=== PATIENT | female | born 1970 | race Hispanic/Latino ===

== ENCOUNTER 2017-02-15 20:38 | Emergency (ER) | payer BC, SELFPAY ==
[2017-02-15] MEDS ORDERED: Ketorolac Tromethamine 60 MG/2 ML VIAL ONE (22:39)
--- NOTE | 2017-02-15 23:08 | RAD ---
LEFT HIP TWO VIEWS: History: 46-year-old female with left leg and hip pain for three weeks without injury. FINDINGS: Left hip joint arthrosis. Incidental bone island in the left femoral head/neck junction. No fracture or dislocation. IMPRESSION: No fracture or dislocation. Degenerative changes left hip joint. POS: [facility]
--- NOTE | 2017-02-15 23:14 | RAD ---
LUMBAR SPINE THREE VIEWS: History: 46-year-old female with low back pain and left leg pain for three weeks. FINDINGS: Stable appearing left renal calculus. Disc osteophytosis and facet arthrosis of the lumbar spine, st able. No acute fracture or dislocation or focal bone lesion. IMPRESSION: Lumbar spondylosis. Stable left renal calculus. Unchanged from 03-27-15. POS: [facility]
== END 2017-02-15 22:50 | disposition home or self-care (01) ==
LOC: ERS 20:38
DX: M79.604 Pain in right leg (principal); F32.9 Major depressive disorder, single episode, unspecified; F17.210 Nicotine dependence, cigarettes, uncomplicated
CPT/HCPCS: 72100; 96372; J1885

== ENCOUNTER 2017-06-22 12:01 | Outpatient (CLI) | payer BC | END 2017-06-22 12:02 | disposition home or self-care (01) | LOC: BICMAMMO 12:01 | PROVIDERS: ATTEND Family Medicine | DX: Z12.31 Encounter for screening mammogram for malignant neoplasm of breast (principal); Z80.3 Family history of malignant neoplasm of breast | CPT/HCPCS: 77063; 77067 ==

== ENCOUNTER 2017-09-23 09:06 | Emergency (ER) | payer BC ==
[2017-09-23 09:57] LABS: #Lymphocytes 0.9 thou/uL (1.20-3.40); #Monocytes 0.5 thou/uL (0.11-0.59); #Neutrophils 5.5 thou/uL (1.40-6.50); %Basophils 0.4 % (0.0-1.0); %Eosinophils 0.5 % (0.0-10.0); %Lymphocytes 12.7 % (21.0-51.0); %Monocytes 7.3 % (0.0-10.0); %Neutrophils 79.1 % (42.0-75.0); Hemoglobin 11.3 g/dL (12.0-16.0); Mean Corpuscular HGB CONC 32.1 g/dL (32.0-36.0); Mean Corpuscular Hemoglobin 26.3 pg (27.0-31.0); Mean Corpuscular Volume 82.2 fl (81.0-99.0); Mean Platelet Volume 10.1 fL (7.4-10.4); Platelet Count 195 thou/uL (130-400); RBC Distribution Width 14.1 % (11.5-14.5); Red Blood Cell (RBC) Count 4.31 mill/uL (4.20-5.40)
[2017-09-23 10:26] LABS: Bilirubin Negative (Negative); Blood, Urine Large (Negative); Clarity CLOUDY (Clear); Glucose, Urine (Dipstick) 500 mg/dL (Negative); Leukocyte Small (Negative); Nitrite Negative (Negative); Protein, Urine (Dipstick) 300 mg/dL (Neg-Trace); Specific Gravity, Urine 1.029 (1.002-1.036)
[2017-09-23 10:27] LABS: Bacteria/HPF None Seen HPF (None Seen); Hyaline Casts/LPF 0-3 HYALINE CAST LPF (0-3 Hyaline); RBC/HPF GREATER THAN 50-TNTC HPF (0-3); Squamous Epithelial 0-3 HPF (0-3)
[2017-09-23 10:28] LABS: Renal Epithelial None Seen HPF (0-3); Transitional Epithelial NONE SEEN HPF (0-3)
[2017-09-23 10:29] LABS: Pregnancy Test - Urine (BHCG) Negative (Negative); Pregu Control Background? CLEAR/WHITE (CLR/WHITE); Pregu Control Bar Appear? YES (CONTROL BAR); Specific Gravity 1.029 (1.002-1.036)
== END 2017-09-23 10:39 | disposition home or self-care (01) ==
LOC: ERS 09:06
DX: N93.8 Other specified abnormal uterine and vaginal bleeding (principal); F32.9 Major depressive disorder, single episode, unspecified; F17.210 Nicotine dependence, cigarettes, uncomplicated
CPT/HCPCS: 36415; 36416; 81003; 81015; 81025; 85025; 86850; 86900; 86901; 99284

== ENCOUNTER 2017-10-19 15:31 | Outpatient (CLI) | payer BC ==
[2017-10-19 15:52] LABS: Hemoglobin 10.4 g/dL (12.0-16.0); Mean Corpuscular HGB CONC 32.7 g/dL (32.0-36.0); Mean Corpuscular Hemoglobin 25.5 pg (27.0-31.0); Mean Corpuscular Volume 78.1 fl (81.0-99.0); Mean Platelet Volume 9.6 fL (7.4-10.4); Platelet Count 200 thou/uL (130-400); Red Blood Cell (RBC) Count 4.07 mill/uL (4.20-5.40); White Blood Cell (WBC) Count 8.3 thou/uL (4.8-10.8)
[2017-10-19 15:59] LABS: BHCG - Serum Negative (NEGATIVE); Pregs Control Background? CLEAR/WHITE (CLR/WHITE); Pregs Control Bar Appear? YES (CONTROL BAR)
== END 2017-10-19 15:32 | disposition home or self-care (01) ==
LOC: LABBT 15:31
PROVIDERS: ATTEND Student in an Organized Health Care Education/Training Program
DX: Z01.812 Encounter for preprocedural laboratory examination (principal); N84.0 Polyp of corpus uteri; N92.0 Excessive and frequent menstruation with regular cycle
CPT/HCPCS: 84703; 85027; 86850; 86900; 86901

== ENCOUNTER 2017-10-21 09:58 | Day surgery (SDC) | payer BC ==
[2017-10-19 15:50] VITALS: BMI 29.9
--- NOTE | 2017-10-21 08:27 | HP ---
DATE OF SURGERY: 10/21/2017 CHIEF COMPLAINT: Menometrorrhagia and endometrial polyp. HISTORY OF PRESENT ILLNESS: This is a 47-year-old, G0, that presented with increasing irregular jennifer ods, sometimes skipping months, occasionally will last for 2 weeks and approximately 4 months ago sta rted bleeding on a daily basis, will happen on very heavy days with increased abdominal pain and dist ention, left lower quadrant pain, worse at night. She has had some upper abdominal pain. She has lo st weight; however, she attributes this to not eating much and having symptoms of GERD, that were unt reated. She has not been to see a doctor about this. She is fatigued. CURRENT MEDICATIONS: Sprintec BCPs. PAST MEDICAL HISTORY: Anxiety. PAST SURGICAL HISTORY: Denies. OBSTETRIC HISTORY: G0. GYNECOLOGIC HISTORY: No abnormal Paps, no STDs. . SOCIAL HISTORY: Negative x3, history of acid use and overdose at age 25. Currently . ALLERGIES: No known drug allergies. FAMILY HISTORY: Breast cancer in her mother, postmenopausal, reported ovarian cancer in her mother l eading to hysterectomy in her 20s, thyroid cancer in her sister, also has a sister with lupus, hyperl ipidemia, diabetes, and CVA. REVIEW OF SYSTEMS: Negative except as noted in HPI. PHYSICAL EXAMINATION: VITAL SIGNS: Blood pressure 104/72, weight 149, pulse is 80. BMI is 30.1. GENERAL: No acute distress. CARDIAC: Regular rate and rhythm. LUNGS: Clear to auscultation bilaterally. ABDOMEN: Soft, nontender, nondistended. EXTREMITIES: No edema, cyanosis or clubbing. PELVIC: Deferred to the OR. ASSESSMENT AND PLAN: A 47-year-old G0 with menometrorrhagia and possible endometrial polyp on pelvic ultrasound. Her ultrasound showed uterus measuring 8.55 x 3.82 x 4.97, endometrial thickness of 12 mm. Endometrial biopsy returned as fragments of endometrial polyp and proliferative endometrium. edison was counseled on options including oral contraceptives versus IUD. The patient is very uncomfortab le with pelvic exams and desires something to solve the problem. She does not desire childbearing an d only has female partners. She was counseled to undergo hysteroscopy, D&C with polypectomy and Mine rva endometrial ablation. She was counseled on the risk including uterine perforation, bleeding, tra nsfusion, infection, damage to surrounding structures and risk of post-ablation syndrome or need for hysterectomy in the future. The patient understands and wished to proceed. All questions were answe red. She will follow up with me in 2 weeks postoperative time.
[2017-10-21] MEDS ORDERED: Gabapentin 300 MG CAP ONE (10:47)
[2017-10-21] MEDS ORDERED: CeleCOXIB 100 MG CAP ONE (10:47)
[2017-10-21] MEDS ORDERED: CEFAZOLIN/Water 2 GM/20 ML SYRINGE ONE (10:56)
[2017-10-21] MEDS ORDERED: Fentanyl 100 MCG/2 ML VIAL ONE (11:45)
--- NOTE | 2017-10-21 13:16 | OP ---
DATE OF OPERATION: 10/21/2017 PREOPERATIVE DIAGNOSES: Endometrial polyp and menorrhagia. POSTOPERATIVE DIAGNOSES: Endometrial polyp and menorrhagia. PROCEDURE PERFORMED: Hysteroscopy, visual dilation and curettage and polypectomy with TruClear and M inerva endometrial ablation. ATTENDING SURGEON: Amy Mcnulty M.D. MANAGER FURNITURE SURGEON: None. ANESTHESIA: General LMA. INTRAVENOUS FLUID: 1200 of crystalloid. URINE OUTPUT: 100 mL of clear at the beginning. ESTIMATED BLOOD LOSS: 5 mL COMPLICATIONS: None. PATHOLOGY: Endometrial polyp. DRAINS: None. FINDINGS: Uterus sounded to 9 cm. Cervical length was 3.5 cm. The uterine cavity had several endom etrial polyps that were benign appearing. Bilateral tubal ostia were visualized. Following the Katrin lear resection, the cavity had normal contours with no masses. The endocervical canal was normal. T he fluid deficit for hysteroscopy was 100 mL. There were no perforations and Carissa ablation was pe rformed for 2 minutes and second look noted good ion to all uterine surfaces. OPERATIVE TECHNIQUE: The patient was taken to the operating room where general anesthesia was obtain ed without difficulty. The patient was prepped and draped in the sterile fashion in the dorsal litho ted position. An I&O cath was performed. A speculum was placed in the vagina. Anterior lip of the cervix was grasped with a single tooth tenaculum. The cervix was dilated with Torsten dilators. The u terus then sounded to 9 cm and the hysteroscope was primed, 5 mm, with normal saline and inserted int o the uterus. The above findings were noted and photo documentation was performed. The small TruCle ar blade was assembled and inserted through the operating channel of the hysteroscope and used to res ect the polyp-like projections on the anterior and posterior dodd of the uterus and this was sent fo r pathology. The hysteroscope was then removed. The cervical length was measured and the Carissa ab lation device was prepared and then inserted into the uterine fundus. An array was deployed with a c avity length of 5.5 dialed in. The cervical cap was inflated and cavity check was performed and pass ed. Ablation was performed for 120 seconds and then the array was collapsed and removed out of the p atient. Second hysteroscopic look was performed with a good ion. There were several floating piece s of tissue in the uterus and therefore the TruClear blade was inserted and used to remove these tiss ue fragments to send for pathology. All instruments were removed out of the vagina. Hemostasis was excellent. The patient tolerated the procedure well. Sponge and needle counts were correct x2. The patient was taken to recovery room in stable condition. Patient received Ancef 2 g prior to the pro cedure.
[2017-10-21] MEDS ORDERED: PROPOFOL 200 MG/20 ML VIAL ONE (15:02)
[2017-10-21] MEDS ORDERED: Ondansetron HCl/PF 4 MG/2 ML Vial ONE (15:02)
[2017-10-21] MEDS ORDERED: Dexamethasone 20 MG/5 ML VIAL ONE (15:02)
[2017-10-21] MEDS ORDERED: Lidocaine 1% PF 5 ML VIAL ONE (15:02)
[2017-10-21] MEDS ORDERED: ePHEDrine/0.9% NaCl/PF SYRINGE 50 mg/10 ml ONE (15:02)
== END 2017-10-21 14:22 | disposition home or self-care (01) ==
LOC: SDC 09:58
PROVIDERS: ATTEND Student in an Organized Health Care Education/Training Program
PROC: 0UDB8ZX Extraction of Endometrium, Via Natural or Artificial Opening Endoscopic, Diagnostic (ICD-10-PCS; principal; 2017-10-21)
PROC: 0U5B8ZZ Destruction of Endometrium, Via Natural or Artificial Opening Endoscopic (ICD-10-PCS; principal; 2017-10-21)
DX: N84.0 Polyp of corpus uteri (principal); N92.1 Excessive and frequent menstruation with irregular cycle; F41.9 Anxiety disorder, unspecified; Z79.3 Long term (current) use of hormonal contraceptives; Z91.010 Allergy to peanuts
CPT/HCPCS: 88305; J1100; J2001; J2405; J2704; J3010

== ENCOUNTER 2018-12-17 19:21 | Emergency (ER) | payer BC | END 2018-12-17 20:18 | disposition home or self-care (01) | LOC: ERS 19:21 | DX: H65.91 Unspecified nonsuppurative otitis media, right ear (principal); H60.91 Unspecified otitis externa, right ear; J02.9 Acute pharyngitis, unspecified; F32.9 Major depressive disorder, single episode, unspecified; F17.210 Nicotine dependence, cigarettes, uncomplicated | CPT/HCPCS: 87081; 87430; 99284 ==

== ENCOUNTER 2019-02-16 07:59 | Outpatient (CLI) | payer BC ==
--- NOTE | 2019-02-17 08:48 | MMO ---
Bilateral MAMMO Bilat Screen [facility]. CLINICAL HISTORY: Patient is 48 years old and is seen for screening. The patient has the following family history of breast cancer: mother, at age 25. The patient has no personal history of cancer. VIEWS: The views performed were: bilateral craniocaudal with tomosynthesis and bilateral mediolateral oblique with tomosynthesis. FILMS COMPARED: The present examination has been compared to prior imaging studies performed at [facility] on 09/29/2012 and 06/22/2017. This study has been interpreted with the assistance of computer-aided detection. MAMMOGRAM FINDINGS: There are scattered fibroglandular densities. There is a mass seen in the middle of the left breast. In the right breast, there are no suspicious masses, calcifications or areas of architectural distortion. IMPRESSION: MASS IN THE LEFT BREAST REQUIRES ADDITIONAL EVALUATION. SPOT COMPRESSION IS RECOMMENDED. AN ULTRASOUND EXAM IS RECOMMENDED IF NEEDED. THE RESULTS OF THIS EXAM WERE SENT TO THE PATIENT. ACR BI-RADS Category 0 - Incomplete: Need additional imaging evaluation. [facility] will notify the patient of the need for additional imaging services. MAMMOGRAPHY NOTE: 1. A negative mammogram report should not delay a biopsy if a dominant of clinically suspicious mass is present. 2. Approximately 10% to 15% of breast cancers are not detected by mammography. 3. Adenosis and dense breasts may obscure an underlying neoplasm. Reported by: Alex CRUZ Electonically Signed: [id number]
== END 2019-02-16 08:00 | disposition home or self-care (01) ==
LOC: BICMAMMO 07:59
PROVIDERS: ATTEND Family Medicine
DX: Z12.31 Encounter for screening mammogram for malignant neoplasm of breast (principal); N63.20 Unspecified lump in the left breast, unspecified quadrant; Z80.3 Family history of malignant neoplasm of breast
CPT/HCPCS: 77063; 77067

== ENCOUNTER 2019-02-22 08:51 | Outpatient (CLI) | payer BC ==
--- NOTE | 2019-02-22 09:40 | MMO ---
Left Breast MAMMO Unilat Diag [facility]DI LT+[facility]. CLINICAL HISTORY: Patient is 48 years old and is seen for diagnostic exam. The patient has the following family history of breast cancer: mother, at age 25. The patient has no personal history of cancer. VIEWS: The views performed were: left craniocaudal spot compression with tomosynthesis; left mediolateral oblique spot compression with tomosynthesis; and left mediolateral with tomosynthesis. FILMS COMPARED: The present examination has been compared to prior imaging studies performed at [facility] on 09/29/2012, 06/22/2017, 02/16/2019 and 02/22/2019. This study has been interpreted with the assistance of computer-aided detection. MAMMOGRAM FINDINGS: There are scattered fibroglandular densities. There are several oval masses with obscured margins seen in the left breast at 12 o'clock. A cluster of cysts is seen in this region sonographically. There are no suspicious masses, suspicious calcifications, or new areas of architectural distortion. IMPRESSION: THERE IS NO MAMMOGRAPHIC EVIDENCE OF MALIGNANCY. A ROUTINE FOLLOW-UP MAMMOGRAM IN 1 YEAR IS RECOMMENDED. THE RESULTS OF THIS EXAM WERE SENT TO THE PATIENT. ACR BI-RADS Category 2 - Benign finding MAMMOGRAPHY NOTE: 1. A negative mammogram report should not delay a biopsy if a dominant of clinically suspicious mass is present. 2. Approximately 10% to 15% of breast cancers are not detected by mammography. 3. Adenosis and dense breasts may obscure an underlying neoplasm. Reported by: CORONA HARTLEY MD Electonically Signed: [id number]
--- NOTE | 2019-02-22 10:25 | ULT ---
LIMITED LEFT BREAST ULTRASOUND: Date: 02/22/19 PROVIDED CLINICAL HISTORY: Abnormal mammogram. FINDINGS: Limited sonographic interrogation was performed of the left breast at the 12 o'[address] position. A clus ter of cysts is seen, corresponding to the mammogram finding. No concerning sonographic findings are evident. IMPRESSION: BI-RADS Category 2 - Benign findings. Return to annual screening mammography is recommended. POS: [facility]
== END 2019-02-22 08:52 | disposition home or self-care (01) ==
LOC: BICMAMMO 08:51
PROVIDERS: ATTEND Family Medicine
DX: N63.20 Unspecified lump in the left breast, unspecified quadrant (principal)
CPT/HCPCS: G0279

== ENCOUNTER 2019-05-05 19:28 | Emergency (ER) | payer BC ==
--- NOTE | 2019-05-05 20:32 | RAD ---
CHEST TWO VIEWS: 05/05/19 HISTORY: Cough and congestion. Heart size and mediastinum are within normal limits. The lungs are clear of infiltrates. No significa nt bony findings. IMPRESSION: No active intrathoracic disease. POS: [facility]
== END 2019-05-05 20:43 | disposition home or self-care (01) ==
LOC: ERS 19:28
DX: J20.9 Acute bronchitis, unspecified (principal); F32.9 Major depressive disorder, single episode, unspecified
CPT/HCPCS: 71046

== ENCOUNTER 2020-04-07 13:00 | Emergency (ER) | payer BC ==
--- NOTE | 2020-04-07 13:43 | RAD ---
Left foot 3 views HISTORY: Pain. FINDINGS: Lisfranc joint alignment is anatomic. There is loss of plantar arch on the lateral view. Mild osteoarthritic changes throughout the foot. No acute fracture, dislocation, or aggressive osseou s erosions. No soft tissue gas apparent. Small plantar enthesophyte at the inferior aspect of the calcaneus. Small oval focus of calcification project over the distal aspect of the Achilles tendon. IMPRESSION : Mild degenerative changes. No acute osseous abnormalities are demonstrated. Pes planus. Plantar heel spur. Achilles tendinopathy.
== END 2020-04-07 13:54 | disposition home or self-care (01) ==
LOC: ERS 13:00
DX: S93.602A Unspecified sprain of left foot, initial encounter (principal); M76.9 Unspecified enthesopathy, lower limb, excluding foot; F32.9 Major depressive disorder, single episode, unspecified; Z87.891 Personal history of nicotine dependence

== ENCOUNTER 2020-08-28 08:50 | Outpatient (CLI) | payer BC | END 2020-08-28 08:51 | disposition home or self-care (01) | LOC: BICMAMMO 08:50 | PROVIDERS: ATTEND Family Medicine | DX: Z12.31 Encounter for screening mammogram for malignant neoplasm of breast (principal) | CPT/HCPCS: 77063; 77067 ==

== ENCOUNTER 2025-02-20 13:04 | Outpatient (CLI) | payer BC ==
[2025-02-20 14:18] LABS: #Basophils 0.06 10x3/uL (0.0-0.2); #Eosinophils 0.18 10x3/uL (0.0-0.7); #Monocytes 0.65 10x3/uL (0.11-0.59); #Neutrophils 4.79 10x3/uL (1.40-6.50); %Basophils 0.8 % (0.0-1.0); %Eosinophils 2.3 % (0.0-10.0); %Lymphocytes 26.6 % (21.0-51.0); %Monocytes 8.4 % (0.0-10.0); %Neutrophils 61.8 % (42.0-75.0); Hematocrit 42.6 % (36.0-47.0); Hemoglobin 14.0 g/dL (12.0-16.0); Mean Corpuscular Hemoglobin 28.3 pg (27.0-31.0); Mean Corpuscular Volume 86.1 fL (78.0-98.0); Platelet Count 204 10x3/uL (130-400); Red Blood Cell (RBC) Count 4.95 mill/uL (4.20-5.40); White Blood Cell (WBC) Count 7.75 10x3/uL (4.8-10.8)
[2025-02-20 14:23] LABS: BHCG - Serum Negative (NEGATIVE); Pregs Control Background? CLEAR/WHITE (CLR/WHITE); Pregs Control Bar Appear? YES (CONTROL BAR)
[2025-02-20 14:31] LABS: Anion Gap 12 mmol/L (10-20); BUN (Urea Nitrogen) 14 mg/dL (9.8-20.1); Calc. Creatinine Clearance 0 mL/min (70-130); Calcium 9.1 mg/dL (7.8-10.44); Carbon Dioxide 24 mmol/L (22-29); Chloride 107 mmol/L (98-107); Glucose 106 mg/dL (70-105); Potassium 3.7 mmol/L (3.5-5.1); Sodium 139 mmol/L (136-145)
[2025-02-20 14:37] LABS: INR-International Normal Ratio 1.1; PTT 29.1 sec (22.9-36.1); Prothrombin Time 13.8 sec (12.0-14.7)
[2025-02-20 15:16] LABS: Bacteria/HPF None Seen HPF (None Seen); Glucose, Urine (Dipstick) Normal (Negative); Leukocyte Negative Leu/uL (Negative); Protein, Urine (Dipstick) Negative (Neg-Trace); RBC/HPF 0-3 HPF (0-3); Specific Gravity, Urine 1.019 (1.002-1.036); WBC/HPF 0-3 HPF (0-3)
== END 2025-02-20 13:05 | disposition home or self-care (01) ==
LOC: LABBT 13:04
PROVIDERS: ATTEND Urology
DX: Z01.818 Encounter for other preprocedural examination (principal); N20.0 Calculus of kidney
CPT/HCPCS: 80048; 81001; 84703; 85025; 85610; 85730; 87086; 93005; 93010